=== PATIENT | female | born 1995 | race Caucasian/White ===

== ENCOUNTER 2022-01-03 15:09 | Emergency (ER) | payer OTHER ==
--- OUTSIDE RECORDS SUMMARY | 2022-01-03 15:12 | XMS REPORT | Continuity of Care Document ---
:1995 Author Organization [facility] [place] [facility] t Address [address] [place] [address] Care Team Providers Name Role Phone Pcp, Does Not Have A Primary Care Physician ADRee LIZ Attending Clinician Unavailable Nurse, Women's Health Attending Clinician Unavailable Ree Bianchi MD Attending Clinician Doctor Unassigned, Name Attending Clinician Unavailable Radha YANEZ Attending Clinician Timmy Ontiveros MD Attending Clinician Ree BIANCHI Admitting Clinician Unavailable Ree Bianchi MD Admitting Clinician Payers Payer Name Policy Type Policy Number Effective Date Expiration Date Count includes the [facility] [id number] 2020 [facility] MEDICAID 00:00:00 Problems Condition Condition Condition Status Onset Resolution Last Treating Co mments Source Name Details Category Date Date Treatment Clinician Date Single Single Disease Active 2020-07 Univers liveborn, liveborn, 1-13 ity of born in born in 00:00: [facility], [facility], [address] [place] [address] delivered delivered Bran ch by vaginal by vaginal delivery delivery Encounter Encounter Disease Active 2020-07 Uni vers for for 1-12 ity of induction induction 00:00: James s of labor of labor [address] [place] [address] Obesity Obesity Disease Active 2020-07 Univers (BMI (BMI 0-13 ity of 30-39.9) 30-39.9) 00:00: [address] 40 weeks 40 weeks Disease Active Unive rs gestation gestation 7-13 ity of of of 00:00: [place] 00 [facility] Supervisio Supervisio Disease Active U nivers n of n of 7-13 ity of high-risk high-risk 00:00: James s 00 Medi simona with with Branch insufficie insufficie nt nt care in care in third third trimester trimester No known No known Disease Unive rs active active ity of problems problems [facility] Allergies, Adverse Reactions, Alerts Allergy Allergy Status Severity Reaction(s) Onset Inactive Treating Comm ents Source Name Type Date Date Clinician NO KNOWN Drug Active Univers ALLERGIE Class ity of S [facility] Social History Social Habit Start Date Stop Date Quantity Comments Source ASSERTION 2020-09-12 University 00:00:00 [facility] Exposure to Not sure [facility] SARS-CoV-2 [facility] (event) [facility] Alcohol intake 2021-06-11 2021-06-11 Lifetime University of 00:00:00 00:00:00 non-drinker [facility] (finding) [facility] Education 2021-06-10 2021-06-10 13 University 00:00:00 00:00:00 [facility] Tobacco use and 2021-02-08 2021-02-08 Never used Universit y of exposure 00:00:00 00:00:00 [facility] Sex Ass[birth year] At [birth year] Universit y of 00:00:00 00:00:00 [facility] Smoking Status Start Date Stop Date Source Never smoker [facility] Medications Ordered Filled Start Stop Current Ordering Indication Dosage Frequency Signature Comments Components Source Medication Medication Date Date Medication? Clinician (SIG) Name Name medroxyPROG 2021- No [id number] 150mg Univers ESTERone 10-27 ity of (DEPO-PROVE 20:45: 19:39 [place] RA) syringe 00 :00 Medical 150 mg Branch medroxyPROG 2021- No [id number] 150mg 150 mg, Univers ESTERone 10-27 Intramuscu ity of (DEPO-PROVE 20:45: 19:39 lar, ONCE, [place] RA) syringe 00 :00 1 dose, On Me dical 150 mg Jinny Branch 10/27/21 at 1545, Routine medroxyPROG 2021- No [id number] 150mg Univers ESTERone 08-03 ity of (DEPO-PROVE 23:45: 22:50 [place] RA) syringe 00 :00 Medical 150 mg Branch medroxyPROG 2021- No [id number] 150mg 150 mg, Univers ESTERone 08-03 Intramuscu ity of (DEPO-PROVE 23:45: 22:50 lar, ONCE, [place] RA) syringe 00 :00 1 dose, On Me dical 150 mg 08/03/21 Branch at 1745, Routine 2020-07 Yes Take by Unive rs vit 1-14 mouth. ity of calc,iron,f 15:54: [place] [address] Medical ( Branch VITAMIN ORAL) 2020-07 Yes Take by Unive rs vit 1-14 mouth. ity of calc,iron,f 15:54: [place] [address] Medical ( Branch VITAMIN ORAL) 2020-07 Yes Take by Unive rs vit 1-14 mouth. ity of calc,iron,f 15:54: [place] [address] Medical ( Branch VITAMIN ORAL) 2020-07 Yes Take by Unive rs vit 1-14 mouth. ity of calc,iron,f 15:54: [place] [address] Medical ( Branch VITAMIN ORAL) 2020-07 Yes Take by Unive rs vit 1-14 mouth. ity of calc,iron,f 15:54: [place] [address] Medical ( Branch VITAMIN ORAL) 2020-07 Yes Take by Unive rs vit 1-14 mouth. ity of calc,iron,f 15:54: [address] ( Branch VITAMIN ORAL) ferrous 2020-07 Yes [id number] 325mg Take 1 Univers sulfate 325 1-14 102 tablet by ity of mg (65 mg 00:00: mouth 2 [place] iron) 00 (two) Medical tablet times Branch daily. docusate 2020-07 Yes [id number] 240mg Take 1 Univers calcium 240 1-14 102 capsule by it y of mg capsule 00:00: mouth once [place] 00 daily as Medical needed for Branch Constipati on. ferrous 2020-07 Yes [id number] 325mg Take 1 Univers sulfate 325 1-14 102 tablet by ity of mg (65 mg 00:00: mouth 2 [place] iron) 00 (two) Medical tablet times Branch daily. docusate 2020-07 Yes [id number] 240mg Take 1 Univers calcium 240 1-14 102 capsule by it y of mg capsule 00:00: mouth once [place] 00 daily as Medical needed for Branch Constipati on. ferrous 2020-07 Yes [id number] 325mg Take 1 Univers sulfate 325 1-14 102 tablet by ity of mg (65 mg 00:00: mouth 2 [place] iron) 00 (two) Medical tablet times Branch daily. docusate 2020-07 Yes [id number] 240mg Take 1 Univers calcium 240 1-14 102 capsule by it y of mg capsule 00:00: mouth once [place] 00 daily as Medical needed for Branch Constipati on. ferrous 2020-07 Yes [id number] 325mg Take 1 Univers sulfate 325 1-14 102 tablet by ity of mg (65 mg 00:00: mouth 2 [place] iron) 00 (two) Medical tablet times Branch daily. docusate 2020-07 Yes [id number] 240mg Take 1 Univers calcium 240 1-14 102 capsule by it y of mg capsule 00:00: mouth once [place] 00 daily as Medical needed for Branch Constipati on. ferrous 2020-07 Yes [id number] 325mg Take 1 Univers sulfate 325 1-14 102 tablet by ity of mg (65 mg 00:00: mouth 2 [place] iron) 00 (two) Medical tablet times Branch daily. docusate 2020-07 Yes [id number] 240mg Take 1 Univers calcium 240 1-14 102 capsule by it y of mg capsule 00:00: mouth once [place] 00 daily as Medical needed for Branch Constipati on. ferrous 2020-07 Yes [id number] 325mg Take 1 Univers sulfate 325 1-14 102 tablet by ity of mg (65 mg 00:00: mouth 2 [place] iron) 00 (two) Medical tablet times Branch daily. docusate 2020-07 Yes [id number] 240mg Take 1 Univers calcium 240 1-14 102 capsule by it y of mg capsule 00:00: mouth once [place] 00 daily as Medical needed for Branch Constipati on. HYDROcodone 2020-07 Yes 1{tbl} 1 tablet, Univers -acetaminop 1-13 Oral, ity of hen (NORCO 09:52: Q6HPRN, [place] 5) 5-325 mg 50 Starting Medi simona tablet 1 on Sat Branch tablet 06/11/21 at 0352, Until Discontinu ed, Routine, Pain (scale 7-10) ibuprofen 2020-07 Yes 600mg 600 mg, Univ ers (IBU) 1-13 Oral, ity of tablet 600 09:52: Q6HPRN, [place] mg 50 Starting Medical on Sat Branch 06/11/21 at 0352, Until Discontinu ed, Routine, Pain (scale 4-6) acetaminoph 2020-07 Yes 650mg 650 mg, Un oralia en 1-13 Oral, ity of (TYLENOL) 09:52: Q6HPRN, [place] tablet 650 50 Starting Medic al mg on [facility] Branch 06/11/21 at 0352, Until Discontinu ed, Routine, Pain (scale 1-3) diphenhydrA 2020-07 Yes 25mg 25 mg, Univ ers MINE 1-13 Oral, ity of (BENADRYL) 09:52: Q6HPRN, [place] tablet 25 50 Starting Medica l mg on [facility] Branch 06/11/21 at 0352, Until Discontinu ed, Routine, Sleep, Itching ondansetron 2020-07 Yes 4mg 4 mg, Slow Univers (ZOFRAN 1-13 IV Push, ity of (PF)) 09:52: Q8HPRN, [place] injection 4 50 Starting Medi simona mg on [facility] Branch 06/11/21 at 0352, Until Discontinu ed, Routine, Nausea and Vomiting (N/V) magnesium 2020-07 Yes 30mL 30 mL, Univer s hydroxide 1-13 Oral, ity of (MILK OF 09:52: QDAILYPRN, [place] MAGNESIA) 49 Starting Medica l 400 mg/[address] [facility] Branch suspension 06/11/21 30 mL at 0352, Until Discontinu ed, Routine, Constipati on benzocaine- 2020-07 Yes Topical, Un oralia menthol 1-13 PRN, ity of (DERMOPLAST 09:52: Starting [place] 20-0.5 % [address] [facility] Medical topical 06/11/21 Branch spray at 0352, Until Discontinu ed, Routine, Perineum discomfort FENTanyl 2 2020-07- No Intra-op Un oralia mcg/mL + 1-12 11-13 ity of bupivacaine 17:13: 15:02 [place] 0.125% in 00 :57 Medical NS 250 mL Branch epidural bag lidocaine-e 2020-07- No Epidural, Univers pinephrine 08-10 ONCE INTRA it y of (XYLOCAINE 17:12: 15:02 PROCEDURE, [place] W/EPINEPHRI 00 :57 Starting Medi simona NE) 1.5 on Sun Branch %-1:200,000 06/10/21 injection at 1112, Until Discontinu ed, Routine, Intra-op lidocaine 2020-07- No Infiltrati U nivers 1% 08-10 on, ONCE ity of (XYLOCAINE) 16:50: 15:02 INTRA [place] 100 mg/10 00 :57 PROCEDURE, Medi simona mL (1 %) Starting Branch injection on Sun06/10/21 at 1050, Until Discontinu ed, Routine, Intra-op D5W-LR IV 2020-07- No 1000mL at 125 Uni vers infusion 08-10 mL/hr, IV ity o f 1,000 mL 10:30: 09:54 Infusion, [place] 00 :22 CONTINUOUS Medical , Starting Branch on Sun06/10/21 at 0430, Until 06/11/21 at 0354, Routine FENTanyl PF 2020-07- No 100ug 100 mcg, Univers (SUBLIMAZE 08-10 Slow IV ity o f (PF)) 10:21: 09:54 Push, [place] injection 56 :22 Q1HPRN, Medical 100 mcg Starting Branch on Sun06/10/21 at 0421, Until 06/11/21 at 0354, Routine, pain proMETHazin 2020-07- No 25mg 25 mg, IV Univers e 08-10 Piggyback, ity of (PHENERGAN) 10:21: 09:54 Q4HPRN, [place] 25 mg in 56 :22 Starting Medical NaCl 0.9% on Sun Branch (NS) 50 mL 06/10/21 IV at 0421, piggyback Until 06/11/21 at 0354, Routine, Nausea and Vomiting (N/V) LR 1000 mL 2020-07- No 2mU/min at 6-120 Univers + oxytocin 08-10- mL/hr, IV ity of 20 units IV 10:21: 09:54 Infusion, [place] Solution 56 :22 TITRATE, Medical Starting Branch on Sun06/10/21 at 0421, Until 06/11/21 at 0354, RAQUEL lactated 2020-07- No 500mL at 999 [facility] ringers IV -12 11-13 mL/hr, 500 it y of infusion 10:21: 09:54 mL, IV [place] 500 mL 56 :22 Infusion, Medical PRN - SEE Branch INSTRUCTIO NS, Starting on Sun06/10/21 at 0421, Until 06/11/21 at 0354, Routine 2020-07 Yes Take by [facility] vit 1-12 mouth. ity of calc,iron,f 04:13: Ashia leonardo 52 Medical ( Branch VITAMIN ORAL) Immunizations Ordered Filled Immunization Date Status Comments [facility] e Immunization Name Name Influenza Virus 2021-05-11 Completed Universit y of Vaccine Quad IM, 00:00:00 [place] Me dical Preserv and ABX Branch Free 6 MO-64 YRS Influenza Virus 2021-05-11 Completed Universit y of Vaccine Quad IM, 00:00:00 [place] Me dical Preserv and ABX Branch Free 6 MO-64 YRS Influenza Virus 2021-05-11 Completed Universit y of Vaccine Quad IM, 00:00:00 [place] Me dical Preserv and ABX Branch Free 6 MO-64 YRS Influenza Virus 2021-05-11 Completed Universit y of Vaccine [facility] IM, 00:00:00 [place] Me dical Preserv and ABX Branch Free 6 MO-64 YRS Influenza Virus 2021-05-11 Completed Universit y of Vaccine Quad IM, 00:00:00 [place] Me dical Preserv and ABX Branch Free 6 MO-64 YRS Influenza Virus 2021-05-11 Completed Universit y of Vaccine Quad IM, 00:00:00 [place] Me dical Preserv and ABX Branch Free 6 MO-64 YRS Influenza Virus 2021-05-11 Completed Universit y of Vaccine Quad IM, 00:00:00 [place] Me dical Preserv and ABX Branch Free 6 MO-64 YRS TDAP 2021-03-08 Completed University 00:00:00 [facility] TDAP 2021-03-08 Completed University 00:00:00 [facility] TDAP 2021-03-08 Completed University of 00:00:00 [facility] TDAP 2021-03-08 Completed University of 00:00:00 [place] [facility] TDAP 2021-03-08 Completed University of 00:00:00 [place] [facility] TDAP 2021-03-08 Completed University of 00:00:00 [place] [facility] TDAP 2021-03-08 Completed University of 00:00:00 [facility] Vital Signs Vital Name Observation Time Observation Value Comments Source Systolic blood 2021-10-27 19:32:00 130 mm[Hg] Univer sity of pressure [place] [facility] Diastolic blood 2021-10-27 19:32:00 74 mm[Hg] Unive rsity of pressure [place] [facility] Heart rate 2021-10-27 19:32:00 74 /min Universi ty of [place] [facility] Body temperature 2021-10-27 19:32:00 36.94 Elissa Univ ersity of [place] [facility] Respiratory rate 2021-10-27 19:32:00 18 /min Univ ersity of [place] [facility] Body height 2021-10-27 19:32:00 142.2 cm Universi ty of [place] [facility] Body weight 2021-10-27 19:32:00 55.792 kg Universi ty of [place] [facility] BMI 2021-10-27 19:32:00 27.58 kg/m2 Universi ty [facility] [place] [facility] Systolic blood 2021-08-03 22:32:00 115 mm[Hg] Univer sity of pressure [place] [facility] Diastolic blood 2021-08-03 22:32:00 76 mm[Hg] Unive rsity of pressure [place] [facility] Heart rate 2021-08-03 22:32:00 105 /min Universi ty of [place] [facility] Body temperature 2021-08-03 22:32:00 36.83 Elissa Univ ersity of [place] [facility] Respiratory rate 2021-08-03 22:32:00 18 /min Univ ersity of [place] [facility] Body height 2021-08-03 22:32:00 142.2 cm Universi ty of [place] [facility] Body weight 2021-08-03 22:32:00 54.885 kg Universi ty [facility] [place] [facility] BMI 2021-08-03 22:32:00 27.13 kg/m2 [facility]i ty [facility] [place] [facility] Systolic blood 2021-07-01 22:23:00 118 mm[Hg] Univer sity of pressure [facility] Diastolic blood 2021-07-01 22:23:00 84 mm[Hg] Unive rsity of pressure [facility] Heart rate 2021-07-01 22:23:00 73 /min Universi ty of [facility] Body temperature 2021-07-01 22:23:00 36.28 Elissa [facility] Respiratory rate 2021-07-01 22:23:00 18 /min Univ ersity of [facility] Body height 2021-07-01 22:23:00 142.2 cm Universi ty of [facility] Body weight 2021-07-01 22:23:00 55.339 kg Universi ty [facility] BMI 2021-07-01 22:23:00 27.35 kg/m2 Universi ty [facility] Systolic blood 2021-06-12 10:24:00 126 mm[Hg] [facility] Diastolic blood 2021-06-12 10:24:00 70 mm[Hg] [facility]ive [facility] Heart rate 2021-06-12 10:24:00 87 /min Universi ty of [facility] Body temperature 2021-06-12 10:24:00 36.67 Elissa [facility] 2021-06-12 10:24:00 16 /min [facility] Oxygen saturation in 2021-06-12 10:24:00 99 /min [facility] Arterial blood by [facility] Pulse oximetry [facility] Body height 2021-06-10 10:31:00 142.2 cm Universi ty of [facility] Body weight 2021-06-10 10:31:00 67.586 kg Universi ty [facility] BMI 2021-06-10 10:31:00 33.42 kg/m2 [facility] Procedures Procedure Date / Time Performing Clinician Source Performed CONSENT FOR 2021-08-03 06:01:00 Doctor Unassigned, No [facility] [place] [facility] CONTRACEPTION Name [facility] POCT TEST 2021-08-03 00:00:00 Adagusto, Connie Keenan [facility] CBC WITH DIFF 2021-06-12 10:35:00 Adum, Connie [facility] CENTRAL NEURAXIAL BLOCK 2021-06-10 17:23:45 Tello Garcia [facility] ADC OR JEFE ONLY - 2021-06-10 10:45:00 Adum, Connie Keenan [facility] RPR Medical Branch CBC WITH DIFF 2021-06-10 10:44:00 Adum, Connie Keenan [facility] HEPATITIS B SURFACE 2021-06-10 10:44:00 Adum, Connie Keenan [facility] ANTIGEN [facility] HIV 1/2 AG-AB WITH 2021-06-10 10:44:00 Adum, Connie Keenan [facility] REFLEX [facility] HB ABO GROUPING 2021-06-10 10:35:00 Adum, Connie Keenan [facility] CONSENT/REFUSAL FOR 2021-06-09 21:54:33 [facility] Medical Branch ASSIGNMENT OF BENEFITS 2021-06-09 21:40:57 Doctor Unassigned, No [facility] NOTICE OF PRIVACY 2021-06-09 21:40:41 Doctor Unassigned, No [facility] CONSENT/REFUSAL FOR 2021-06-09 21:40:23 Doctor Unassigned, No [facility] Medical Branch ASSIGNMENT OF BENEFITS 2021-06-09 21:40:05 Doctor Unassigned, No [facility] Encounters Start End Encounter Admission Attending Care Care Encounter Source Date/Time Date/Time Type Type Clinicians Facility Department ID 2022-08-08 2022-08-08 Outpatient R ADUM, [facility] [id number] Univers 13:30:00 13:30:00 CONNIE [id number] [facility] 2022-01-23 2022-01-23 Outpatient R [facility] [id number] Univers 14:30:00 14:30:00 [id number] [facility] 2021-10-27 2021-10-27 Outpatient R ADAGUSTO, [facility] [id number] Univers 14:30:00 14:40:00 CONNIE [facility] 2021-10-27 2021-10-27 Nurse Nurse, [facility] [id number] Univers 14:30:00 14:40:00 Visit Adum, Connie MONTEZ [id number] ity of [place] [id number] PROFESS[place] [id number] [place] [address] 2021-10-27 2021-10-27 Outpatient R [facility] [id number] Univers 14:30:00 14:30:00 [id number] ity [facility] 2021-10-27 2021-10-27 Outpatient R [facility] [id number] Univers 14:00:00 14:00:00 ity [facility] 2021-10-26 2021-10-26 Outpatient R [facility] [id number] Univers 14:30:00 14:30:00 [id number] ity [facility] 2021-10-26 2021-10-26 Outpatient R ADUM, [facility] [id number] Univers 14:30:00 14:30:00 CONNIE [facility] 2021-08-03 2021-08-03 Outpatient R ADUM, [facility] [id number] Univers 16:15:00 16:53:04 CONNIE [facility] 2021-08-03 2021-08-03 [facility] [id number] Univers 16:15:00 16:53:04 Connie MONTEZ [id number] ity of Visit [id number] [id number] [address] 2021-08-03 2021-08-03 Outpatient R ADUM, [facility] [id number] Univers 16:15:00 16:15:00 CONNIE [id number] ity [facility] 2021-08-03 2021-08-03 Orders Doctor HECK [id number] Univers 00:00:00 00:00:00 Only Unassigned, SHALA [id number] ity of [place] [facility] [id number] [place] [id number] [address] 2021-07-21 2021-07-21 Outpatient R ADUM, [facility] [id number] Univers 16:00:00 16:00:00 CONNIE [id number] ity [facility] 2021-07-21 2021-07-21 Outpatient R ADUM, [facility] [id number] Univers 16:00:00 16:00:00 CONNIE ity [facility] 2021-07-01 2021-07-01 Routine Ad, [facility] [id number] Univers 16:11:09 16:47:21 Connie MONTEZ [id number] ity of [id number] [id number] Ia dical [facility] [address] [facility] 2021-07-01 2021-07-01 Outpatient R AD, [facility] [id number] Univers 16:00:00 16:47:21 CONNIE ity [facility] 2021-07-01 2021-07-01 Outpatient R ADUM, [facility] [id number] Univers 16:00:00 16:00:00 CONNIE [id number] ity [facility] 2021-06-10 2021-06-12 Inpatient P AD, [facility] SHANTE [id number] Univers 04:13:00 13:45:00 CONNIE ity [facility] 2021-06-10 2021-06-12 [facility] [id number] Univers 04:13:00 13:45:00 Encounter Connie MONTEZ [id number] ity [facility] [id number] [id number] [facility] [address] [place] 2021-06-11 2021-06-11 [facility] 1.2.840.114 [id number] Univers 20:03:50 20:03:50 Event Tello MONTEZ [id number] i ty of [facility] [id number] [id number] [facility] [address] [place] 2021-06-10 2021-06-11 Anesthesia Tello Garcia [facility] 1.2.840.11 [id number] [facility] 10:50:00 07:36:00 Event Syed Warner [id number] [facility] [id number] [facility] [id number] [address] Results Test Description Test Time Test Comments Results Result Comments Source POCT TEST 2021-08-03 22:34:00 Test Item Value Reference Range Interpretation Comme nts POCT PREG (test code = 1605) Negative On board controls acceptable with C Line (test code = 3574) Yes POCT PREG LOT # (test code = 3575) POCT PREG TEST DATE (test code = 3576) Lab Interpretation (test code = 16198-9) Normal [facility] with [id number] 12:01:57 Test Item Value Reference Range Interpretation Comments WBC (test code = See_Comment H [Automated 6160-2) message] The system which generated this result transmit [place] reference range : 4.30 - 11.10 10*3/?L. The reference range was not used to interpret this result as normal/abnormal . RBC (test code = See_Comment L [Automated 919-8) message] The system which generated this result transmit [place] reference range : 3.93 - 5.25 10*6/?L. The reference range was not used to interpret this result as normal/abnormal . HGB (test code = 9.2 g/dL 11.6-15.0 L 718-7) HCT (test code = 29.0 % 35.7-45.2 L 4544-3) MCV (test code = 88.1 fL 80.6-95.5 787-2) MCH (test code = 28.0 pg 25.9-32.8 785-6) MCHC (test code = 31.7 g/dL 31.6-35.1 786-4) RDW-SD (test code = 46.5 fL 39.0-49.9 24248-8) RDW-CV (test code = 14.6 % 12.0-15.5 788-0) PLT (test code = See_Comment [Automated 117-3) message] The system which generated this result transmit [place] reference range : 166 - 358 10*3/ ?L. The reference range was not u sed to interpret th is result as normal/abnormal . MPV (test code = 10.8 fL 9.5-12.9 18798-7) NRBC/100 WBC (test See_Comment [Automat ed code = 3778138524) message] The system which generated this result transmit [place] reference range : 0.0 - 10.0 /100 WBCs. The reference range was not used to interpret this result as normal/abnormal . NRBC x10^3 (test code <0.01 See_Comment [Auto mated = [id number]) message] The system which generated this result transmit [place] reference range : 10*3/?L. The reference range was not used to interpret this result as normal/abnormal . GRAN MAT (NEUT) % 78.8 % (test code = 770-8) IMM GRAN % (test code 6.70 % = 5979421232) LYMPH % (test code = 8.7 % 736-9) MONO % (test code = 3.9 % 5905-5) EOS % (test code = 1.1 % 713-8) BASO % (test code = 0.8 % 706-2) GRAN MAT x10^3(ANC) 15.76 10*3/uL 1.88-7.09 H (test code = 1193424802) IMM GRAN x10^3 (test 1.33 10*3/uL 0.00-0.06 H code = 8233985712) LYMPH x10^3 (test code 1.73 10*3/uL 1.32-3.29 = 731-0) MONO x10^3 (test code 0.78 10*3/uL 0.33-0.92 = 742-7) EOS x10^3 (test code = 0.22 10*3/uL 0.03-0.39 711-2) BASO x10^3 (test code 0.16 10*3/uL 0.01-0.07 H = 704-7) BANDS (test code = Increased A [id number]) Lab Interpretation Abnormal (test code = 18764-6) [facility] JUNIOR GOOD - [id number] 07:42:22 Test Item Value Reference Range Interpretation Comments RPR (Qualitative) (test code = Nonreactive Nonreactive 01370-1) Lab Interpretation (test code = Normal 27465-0) [facility]atitis [facility] Surface [id number] 16:49:47 Test Item Value Reference Range Interpretation Comments HBsAg Semi-Quantitative (test code = Negative Negative 5195-3) [facility]HIV [facility]2 AG-AB WITH [id number] 13:11:06 Test Item Value Reference Range Interpretation Comments HIV Negative Negative Semi-quantitative (test code = 21667-2) ROCAEL (test code = Non-reactive for HIV-1 ROCAEL) antigen and HIV-1/HIV-2 antibodies. ?No laboratory evidence of HIV infection. ?Repeat in 2-4 weeks if acute HIV infection is suspected. [facility]CBC with [id number] 13:09:26 Test Item Value Reference Range Interpretation Comments WBC (test code = See_Comment H [Automated 7790-2) message] The system which generated this result transmit camille reference range : 4.30 - 11.10 10*3/?L. The reference range was not used to interpret this result as normal/abnormal . RBC (test code = See_Comment L [Automated 789-8) message] The system which generated this result transmit camille reference range : 3.93 - 5.25 10*6/?L. The reference range was not used to interpret this result as normal/abnormal . HGB (test code = 10.4 g/dL 11.6-15.0 L 718-7) HCT (test code = 32.9 % 35.7-45.2 L 4544-3) MCV (test code = 87.7 fL 80.6-95.5 787-2) MCH (test code = 27.7 pg 25.9-32.8 785-6) MCHC (test code = 31.6 g/dL 31.6-35.1 786-4) RDW-SD (test code = 45.0 fL 39.0-49.9 85974-4) RDW-CV (test code = 14.2 % 12.0-15.5 788-0) PLT (test code = See_Comment [Automated 777-3) message] The system which generated this result transmit camille reference range : 166 - 358 10*3/ ?L. The reference range was not u sed to interpret th is result as normal/abnormal . MPV (test code = 10.9 fL 9.5-12.9 74143-1) NRBC/100 WBC (test See_Comment [Automat ed code = [id number]) message] The system which generated this result transmit camille reference range : 0.0 - 10.0 /100 WBCs. The reference range was not used to interpret this result as normal/abnormal . NRBC x10^3 (test code <0.01 See_Comment [Auto mated = [id number]) message] The system which generated this result transmit camille reference range : 10*3/?L. The reference range was not used to interpret this result as normal/abnormal . SEG % (test code = 64 % 33-76 93964-3) BAND % (test code = 4 % 0-1 H 60812-2) LYMPH % (test code = 20 % 14-54 66919-9) MONO % (test code = 8 % 0-4 H 21135-0) EOS % (test code = 3 % 0-3 19302-9) BASO % (test code = 1 % 0-1 92593-5) ANC (test code = 10.36 10*3/uL 1.88-7.09 H 753-4) POLYCHROMASIA (test 2+ See_Comment [Automa camille code = 79945-0) message] The system which generated this result transmit camille reference range : 2+. The referen ce range was not u sed to interpret th is result as normal/abnormal . GIANT PLATELETS (test Present See_Comment A [Auto mated code = 5908-9) message] The system which generated this result transmit camille reference range : (none). The reference range was not used to interpret this result as normal/abnormal . Lab Interpretation Abnormal (test code = 56870-2) [facility] Screen - ONCE [id number] 12:24:09 Test Item Value Reference Range Interpretation Comments ABO & RH (test code O Positive Performe d at [facility] = 20) Laboratory Serv [facility] [place] [phone] Free: [phone] A No. [id number] IAT (test code = Negative Performed a t [facility] 1185) Laboratory Serv [facility] [address] [place] [phone] Free: [phone] A No. [id number] [facility]
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
[2022-01-03 16:53] VITALS: BP 110/98; TEMP 98.8; O2SAT 98
== END 2022-01-03 16:14 | disposition home or self-care (01) ==
LOC: ER 15:09
DX: S20.319A Abrasion of unspecified front wall of thorax, initial encounter (principal); M54.50 Low back pain, unspecified; V49.50XA Passenger injured in collision with unspecified motor vehicles in traffic accident, initial encounter
CPT/HCPCS: 99284

== ENCOUNTER 2024-08-17 21:46 | Emergency (ER) | payer OTHER ==
[2024-08-17] MEDS ORDERED: IBUPROFEN 400 MG TAB ONE (22:11)
[2024-08-17 23:09] LABS: SARS-CoV-2 Antigen CONTROL BLUE LINE VIS/BG OK; SARS-CoV-2 Antigen Rapid Res Negative (Negative)
--- NOTE | 2024-08-17 23:13 | ER ---
Nurse's Notes [facility] Name: Reanna Albarran Age: 28 yrs Sex: Female : 1995 Arrival Date: 08/17/2024 Time: 21:46 Bed 8 Private MD: Diagnosis: Influenza due to identified novel influenza A virus Presentation: 08/17 22:01 Chief complaint: Patient states: fever, cough, sore throat that started this morning. cp4 Coronavirus screen: Client denies travel out of the [place] in the last 14 days. At this time, the client does not indicate any symptoms associated with coronavirus-19. Ebola Screen: Patient negative for fever greater than or equal to 101.5 degrees Fahrenheit, and additional compatible Ebola Virus Disease symptoms Patient denies exposure to infectious person. Patient denies travel to an Ebola-affected area in the 21 days before illness onset. No symptoms or risks identified at this time. Initial Sepsis Screen: Does the patient meet any 2 criteria? Temp <36.0*C (96.8*F)) or > 38.3*C (100.9*F). HR > 90 bpm. Does the patient have a suspected source of infection? No. Patient's initial sepsis screen is negative. If YES to both, name of provider notified: Jose Steen MD. Risk Assessment: Do you want to hurt yourself or someone else? Patient reports no desire to harm self or others. Onset of symptoms was August 17, 2024. 22:01 Method Of Arrival: Ambulatory cp4 22:01 Acuity: ROGELIO 3 cp4 Triage Assessment: 22:04 General: Appears in no apparent distress. uncomfortable, Behavior is calm, cooperative, cp4 appropriate for age. Pain: Denies pain. EENT: Reports difficulty swallowing pain when swallowing. 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 - Infectious Disease History:: Denies. Patient screened negative for H5N1 Reji Flu after testing positive for flu A. . - Social history:: Smoking status: Patient denies any tobacco usage or history of. Screenin:20 [facility] ED Fall Risk Assessment (Adult) History of falling in the last 3 months, dd2 including since admission No falls in past 3 months (0 pts) Confusion or Disorientation No (0 pts) Intoxicated or Sedated No (0 pts) Impaired Gait No (0 pts) Mobility Assist Device Used No (0 pt) Altered Elimination No (0 pt) Score/Fall Risk Level 0 - 2 = Low Risk Oriented to surroundings, Maintained a safe environment, Educated pt \T\ family on fall prevention, incl call for assistance when getting out of bed, Assessed \T\ reinforced patient's understanding of fall precautions, Hourly rounding (assess needs \T\ fall precautionary measures) done. Abuse screen: Denies threats or abuse. Nutritional screening: No deficits noted. Tuberculosis screening: No symptoms or risk factors identified. Assessment: 22:20 General: Appears in no apparent distress. uncomfortable, Behavior is calm, cooperative, dd2 appropriate for age. Pain: Complains of pain in THROAT Pain does not radiate. Pain currently is 6 out of 10 on a pain scale. Neuro: Traylor Agitation-Sedation Scale (RASS): 0 - Alert and Calm Level of Consciousness is awake, alert, obeys commands, Oriented to person, place, time, situation, Appropriate for age. Cardiovascular: Patient's skin is warm and dry. Respiratory: Reports cough that is non-productive, persistent Airway is patent Respiratory effort is even, unlabored, Respiratory pattern is regular, symmetrical, Breath sounds are clear bilaterally. GI: No deficits noted. No signs and/or symptoms were reported involving the gastrointestinal system. Abdomen is non-distended, Abd is soft and non tender X 4 quads. : No deficits noted. No signs and/or symptoms were reported regarding the genitourinary system. EENT: Throat is reddened Reports nasal congestion nasal discharge that is watery pain in THROAT when swallowing. Derm: No deficits noted. No signs and/or symptoms reported regarding the dermatologic system. Musculoskeletal: No deficits noted. No signs and/or symptoms reported regarding the musculoskeletal system. Circulation, motion, and sensation intact. Range of motion: intact in all extremities. 23:36 Reassessment: Patient and/or family updated on plan of care and expected duration. Pain ha1 level reassessed. Patient is alert, oriented x 3, equal unlabored respirations, skin warm/dry/pink. Patient states feeling better. Patient states symptoms have improved. Vital Signs: 22:01 BP 117 / 66; Pulse 134; Resp 18; Temp 103.3; Pulse Ox 100% ; Weight 74.84 kg; Height 4 cp4 ft. 8 in. ; Pain 0/10; 23:37 BP 98 / 66; Pulse 118; Resp 18 S; Pulse Ox 100% on R/A; ha1 08/18 00:13 BP 103 / 65; Pulse 109; Resp 16; Temp 99.2(O); Pulse Ox 100% on R/A; dd2 08/17 22:01 Body Mass Index 36.99 (74.84 kg, 142.24 cm) 4 08/17 22:01 Pain Scale: Adult cp4 Renee Coma Score: 08/17 22:20 Eye Response: spontaneous(4). Motor Response: obeys commands(6). Verbal Response: dd2 oriented(5). Total: 15. ED Course: 21:48 Patient arrived in ED. jj6 21:51 Fadumo Moncada PA-C [facility]. sb4 21:51 Jose Steen MD is Attending Physician. sb4 22:04 Triage completed. cp4 22:04 Arm band placed on right wrist. Patient placed in waiting room. EKG completed in 4 triage. Results shown to MD. 22:14 Strep Sent. ha1 22:14 Flu Sent. ha1 22:14 SARS RAPID Sent. ha1 22:19 Flu and/or RSV swab sent to lab. Strep swab sent to lab. dd2 22:20 Bed in low position. Call light in reach. Side rails up X 1. Client placed on dd2 continuous cardiac and pulse oximetry monitoring. NIBP monitoring applied. Door closed. Noise minimized. Pillow given. PO fluids given. Verbal reassurance given. 22:20 No provider procedures requiring assistance completed. Patient did not have IV access dd2 during this emergency room visit. Patient maintains SpO2 saturation greater than 95% on room air. 22:37 Chest Single View XRAY In Process Unspecified. EDMS 23:13 TEENA BURRIS, RN is Primary Nurse. dd2 08/18 00:14 Provided Education on: D/C EDUCATION. dd2 Administered Medications: 08/17 22:14 Drug: Ibuprofen PO 800 mg PO once Route: PO; ha1 22:44 Follow up: Response: No adverse reaction dd2 23:34 Drug: Oseltamivir PO 75 mg PO once Route: PO; dd2 08/18 00:05 Follow up: Response: No adverse reaction dd2 08/17 23:34 Drug: Acetaminophen PO 1000 mg PO once Route: PO; dd2 08/18 00:05 Follow up: Response: No adverse reaction dd2 Medication: 08/17 22:20 VIS not applicable for this client. dd2 Outcome: 23:13 Discharge ordered by MD. girard 23:56 Discharge ordered by MD. girard 08/18 00:13 Discharged to home ambulatory, dd2 Condition: improved Discharge instructions given to patient, Instructed on discharge instructions, follow up and referral plans. medication usage, Demonstrated understanding of instructions, follow-up care, medications, Prescriptions given X 1, 00:14 Patient left the ED. dd2 Signatures: Dispatcher [employer] EDMS Amarilis Campbell jj6 Aleksandra Roy RN RN vc1 Shelby Paige RN RN haFadumo Rios, PADenishaC PA-Rory brooks4 Nani Harrell 4 TEENA BURRIS RN RN dd2 Corrections: (The following items were deleted from the chart) 08/17 23:27 23:27 General: vc1 dd2
--- NOTE | 2024-08-17 23:13 | EDPHYS ---
Physician Documentation [facility] Name: Reanna Albarran Age: 28 yrs Sex: Female : 1995 Arrival Date: 08/17/2024 Time: 21:46 Bed 8 Private MD: ED Physician Jose Steen HPI: 08/17 22:23 This 28 yrs old Female presents to ER via Ambulatory with complaints of Fever, Cough, sb4 Sore Throat. 22:23 Cough, congestion, sore throat, and fever x 24 hours. States that she took Tylenol and sb4 a dose of amoxicillin today. States she had 1 episode of vomiting. Denies any chest pain or shortness of breath. Does report sick contacts. 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 - Infectious Disease History:: Denies. Patient screened negative for H5N1 Reji Flu after testing positive for flu A. . - Social history:: Smoking status: Patient denies any tobacco usage or history of. ROS: 22:23 Cardiovascular: Negative for chest pain, palpitations, and edema, sb4 22:23 Constitutional: Positive for fever, malaise, 22:23 ENT: Positive for sore throat, 22:23 Respiratory: Positive for cough, 22:23 Abdomen/GI: Positive for nausea and vomiting, 22:23 All other systems are negative, Exam: 22:23 Head/Face: Normocephalic, atraumatic. Eyes: Extra-ocular motions intact. Periorbital sb4 areas with no swelling, redness, or edema. Respiratory: No increased work of breathing, no retractions or nasal flaring. Abdomen/GI: Soft, non-tender, no distension. 22:23 Constitutional: The patient appears alert, awake, obviously ill, 22:23 ENT: Posterior pharynx: Tonsils: bilaterally enlarged, with erythema, no exudate, no ulcerations, 22:23 Cardiovascular: Rate: tachycardic, Rhythm: regular, 22:23 Respiratory: Breath sounds: are clear throughout, 22:23 Skin: Appearance: Temperature: warm, Vital Signs: 22:01 BP 117 / 66; Pulse 134; Resp 18; Temp 103.3; Pulse Ox 100% ; Weight 74.84 kg; Height 4 cp4 ft. 8 in. ; Pain 0/10; 23:37 BP 98 / 66; Pulse 118; Resp 18 S; Pulse Ox 100% on R/A; ha1 08/18 00:13 BP 103 / 65; Pulse 109; Resp 16; Temp 99.2(O); Pulse Ox 100% on R/A; dd2 08/17 22:01 Body Mass Index 36.99 (74.84 kg, 142.24 cm) cp4 08/17 22:01 Pain Scale: Adult cp4 Renee Coma Score: 08/17 22:20 Eye Response: spontaneous(4). Motor Response: obeys commands(6). Verbal Response: dd2 oriented(5). Total: 15. MDM: 21:54 Medical Screening Exam initiated sb4 23:12 Differential diagnosis: viral Infection, bacterial infection, URI, bronchitis, sb4 pneumonia. Data reviewed: vital signs, nurses notes, lab test result(s), radiologic studies, and as a result, I will discharge patient. Counseling: I had a detailed discussion with the patient and/or guardian regarding the historical points, exam findings, and any diagnostic results supporting the discharge/admit diagnosis, lab results, radiology results, to return to the emergency department if symptoms worsen or persist or if there are any questions or concerns that arise at home. 08/17 22:10 Order name: SARS RAPID; Complete Time: 23:09 sb4 08/17 22:10 Order name: Flu; Complete Time: 23:14 sb4 08/17 22:10 Order name: Strep; Complete Time: 23:09 4 08/17 23:11 Order name: Throat Culture [facility] 08/17 22:23 Order name: Chest Single View XRAY sb4 Administered Medications: 22:14 Drug: Ibuprofen PO 800 mg PO once Route: PO; ha1 22:44 Follow up: Response: No adverse reaction dd2 23:34 Drug: Oseltamivir PO 75 mg PO once Route: PO; dd2 08/18 00:05 Follow up: Response: No adverse reaction dd2 08/17 23:34 Drug: Acetaminophen PO 1000 mg PO once Route: PO; dd2 08/18 00:05 Follow up: Response: No adverse reaction dd2 Disposition: 00:26 Co-signature as Attending Physician, Jose Steen MD I agree with the assessment sp4 and plan of care. I reviewed the patient's care provided by Advanced Practice Provider \T\ agree w/ the diagnosis \T\ care plan. I personally saw the pt \T\ performed a substantive portion of the visit, incldng all aspects of the (History/Exam/Medical Decision Making). Disposition Summary: 08/17/24 23:56 Discharge Ordered Notes: Location: Home(08/17/24 23:56) sb4 Problem: new(08/17/24 23:56) sb4 Symptoms: have improved(08/17/24 23:56) sb4 Condition: Stable(08/17/24 23:56) sb4 Diagnosis - Influenza due to identified novel influenza A virus(08/17/24 23:56) sb4 Followup: sb4 - With: Emergency Department - When: As needed - Reason: Trouble breathing, Worsening of condition Discharge Instructions: - Discharge Summary Sheet sb4 - Influenza, Adult, [id number] sb4 Forms: - Patient Portal Instructions sb4 - Leadership Thank You Letter sb4 Prescriptions: - Tamiflu 75 mg Oral capsule - take 1 tablet ORAL route every 12 hours for 5 days; 9 tablet; Refills: 0, sb4 Product Selection Permitted Signatures: Dispatcher [employer] EDMS Aleksandra Roy RN RN vc1 Shelby Paige RN RN ha1 Fadumo Moncada, PA-C PA-C sb4 Jose Steen MD MD sp4 Nani Harrell 4 TEENA BURRIS RN RN dd2 Corrections: (The following items were deleted from the chart) 08/17 23:17 23:13 Home sb4 sb4 23:17 23:13 new sb4 sb4 23:17 23:13 have improved sb4 sb4 23:17 23:13 Stable sb4 sb4 23:17 23:13 Influenza due to identified novel influenza A virus sb4 sb4
[2024-08-17] MEDS ORDERED: ACETAMINOPHEN 500 MG TAB ONE (23:18)
[2024-08-17] MEDS ORDERED: OSELTAMIVIR 75 MG CAP PO ONE (23:19)
[2024-08-18 00:58] VITALS: O2SAT 100
[2024-08-18 01:03] VITALS: BP 103/65; TEMP 99.2
--- NOTE | 2024-08-18 05:55 | RAD REPORT ---
EXAM DESCRIPTION: Chest Single View CLINICAL HISTORY: 28 years Female Congestion. Cough. COMPARISON: None. TECHNIQUE: 1 view study of the chest were performed. FINDINGS: Cardiac size is within normal limits. Central vessels are not increased. No effusions bilaterally. Streaky perihilar and infrahilar airspace opacities bilaterally. No consoli dation. No pneumothorax. IMPRESSION: Bilateral perihilar and infrahilar infiltrate and atelectatic change. Electronically signed by: Unique Olmstead MD 08/17/2024 11:[address] [facility] Due to temporary technical issues with the PACS/Elevate reporting system, reports are being naveed d by the in-house radiologist without review as a courtesy to ensure prompt reporting the interpreting radiologist is fully responsible for the content of the report. Transcribed Date/Time: 08/18/2024 5:55 AM
== END 2024-08-18 00:14 | disposition home or self-care (01) ==
LOC: ER 21:46 → UNDOADMIN 08-18 03:30 → ERHOLD 08-18 03:30
DX: J10.1 Influenza due to other identified influenza virus with other respiratory manifestations (principal); Z11.52 Encounter for screening for COVID-19
CPT/HCPCS: 36415; 71045; 87070; 87081; 87804; 87811; 99284